=== PATIENT | male | born 1970 | race Caucasian/White ===

== ENCOUNTER 2017-05-01 22:14 | Emergency (ER) | payer OTHER ==
[2017-05-01 22:22] VITALS: TEMP 97.6
[2017-05-01] MEDS ORDERED: GLUCAGON HYDROCHLORIDE 1 MG PDS IV ONE (22:22)
[2017-05-01] MEDS ORDERED: SODIUM CHLORIDE 0.9% 1000ML 1,000 ML IV SCH ×2 (22:30)
[2017-05-01] MEDS ORDERED: GLUCAGON HYDROCHLORIDE 1 MG PDS ONE (22:44)
[2017-05-01] MEDS ORDERED: PANTOPRAZOLE SODIUM 40 MG VIAL 80 MG in SODIUM CHLORIDE 0.9% 100 ML 80 ML IV ONE (23:10)
[2017-05-01] MEDS ORDERED: PANTOPRAZOLE SODIUM 40 MG/10 ML PDS ONE ×2 (23:10→23:11)
[2017-05-01 23:16] LABS: BASOPHILS % (AUTO) 1 % (0-3); EOSINOPHILS % (AUTO) 3 % (0-9); HEMATOCRIT 48 % (39-53); MEAN CORPUSCULAR HGB CONC 33.9 gm/dl (32.0-36.0); MEAN CORPUSCULAR VOLUME 89 fL (80-100); MONOCYTES % (AUTO) 6.8 % (0-12); NEUTROPHILS % (AUTO) 64.7 % (37-80)
[2017-05-01 23:23] LABS: CALCIUM 8.9 mg/dl (8.5-10.1); POTASSIUM 4.2 mMol/L (3.5-5.1)
[2017-05-01] MEDS ORDERED: CEFTRIAXONE 1 GM PDS IM ONE (23:44)
[2017-05-01] MEDS ORDERED: CEFTRIAXONE 1 GM PDS ONE (23:46)
[2017-05-01] MEDS ORDERED: LIDOCAINE HCL 1% MPF SOL ONE (23:48)
== END 2017-05-02 00:12 | disposition short-term general hospital (02) | DRG 392 ==
LOC: ED 22:14
DX: R11.2 Nausea with vomiting, unspecified (principal); T17.828A Food in other parts of respiratory tract causing other injury, initial encounter; R10.9 Unspecified abdominal pain; R53.83 Other fatigue
CPT/HCPCS: 36415; 71046; 80048; 85025; 99284; J0696; J1610; J2001